=== PATIENT | female | born 1950 | race Caucasian/White ===

== ENCOUNTER 2022-04-18 12:50 | Emergency (ER) | payer MEDICARE, BC, SELFPAY ==
[2022-04-18 13:00] VITALS: BP 107/67; PULSE 82; RESP 16; TEMP 36.6; O2SAT 95; BMI 27.8
--- NOTE | 2022-04-18 13:18 | CRLHL7_ITS ---
For Patients: As a result of the Cures Act, medical imaging exams and procedure reports are released immediately into your electronic medical record. You may view this report before your referring provider. If you have questions, please contact your health care provider. Indication: Pain. Technique: Right hand, 3 views. Comparison: None. Findings/Impression: Bones: Alignment is normal. No displaced fractures or bone lesions. No sign of acute injury. Joint spaces: Unremarkable. Soft tissues: Unremarkable. Dictated by Fede Chapin MD @ 04/18/2022 1:38:03 PM (Electronically Signed)
--- NOTE | 2022-04-18 13:24 | ED.GENADULT ---
HPI - General Adult General Date Seen: 04/18/22 Chief complaint: Extremity Pain/Injury, Upper Stated complaint: R ring finger swollen Time Seen by Provider: 04/18/22 12:53 Source: patient Mode of arrival: ambulatory Limitations: no limitations History of Present Illness HPI narrative: Patient is a 71-year-old female who presents here with a painful right index finger, she has had this now for approximately 4 weeks, it has gradually get worse, she notices primarily on the flexor part of her hand, it is not red, it is not hot, but she has a hard time extending her finger. She has a little bit of 1 on the also on the left hand to. She notes that she saw her physician 2 weeks ago with colder to take Tylenol and come back and be seen if it gets worse, she called the clinic today and they told her to come to the emergency room. She denies any numbness tingling weakness, she is not poked her finger, she has had no fevers chills, she has no personal history of any significant arthritic type component. Is not an overuse injury. No history of any recent IV or surgical procedures. She is on no immunosuppressive medication, no chronic steroid use. Related Data Home Medications Medication Instructions Recorded Confirmed alendronate 70 mg tablet mg PO 04/18/22 aspirin 81 mg tablet,delayed 81 mg PO DAILY 04/18/22 04/18/22 release (Adult Low Dose Aspirin) citalopram 20 mg tablet mg 04/18/22 famotidine 40 mg tablet mg 04/18/22 levothyroxine 75 mcg tablet mcg 04/18/22 metoprolol tartrate 25 mg tablet mg 04/18/22 montelukast 10 mg tablet mg 04/18/22 pantoprazole 20 mg tablet,delayed mg PO 04/18/22 release pediatric [id number]-[id number] .ROUTE 04/18/22 potassium chloride 20 mEq meq PO 04/18/22 tablet,extended release simvastatin 80 mg tablet mg 04/18/22 triamterene 75 tab 04/18/22 mg-hydrochlorothiazide 50 mg tablet Allergies Allergy/AdvReac Type Severity Reaction Status Date / Time No Known Drug Allergies Allergy Verified 04/18/22 12:56 Review of Systems Status of ROS: Reports: 6 or more systems reviewed and unremarkable except as noted in History and below PFSH PFSH Social History Smoking Status: Never smoker Do you use any of these nicotine containing products: None Second hand tobacco smoke exposure: Yes How often do you have a drink containing alcohol: never AUDIT-C Alcohol total score: 0 Non-prescribed substance use: denies use service: No Exam Narrative: Exam Narrative: On examination she is somewhat sore, on whom of evaluating her right dominant hand, over just proximal to the MCP on the 4th finger, cannot feel a pop per him a mass there, but whenever she moves her hand through full range of motion she is sore and there is some swelling noted of the finger, there is no warmth to this, there is no redness, cap refills normal sensations normal, Const: Vital Signs, click to edit/add: Vital Signs - 24 hr 04/18/22 13:00 04/18/22 14:30 Temperature 97.8 F Pulse Rate [Right Pulse Oximeter] 82 55 L Respiratory Rate 16 16 Blood Pressure [Le ft Upper Arm] 107/67 106/79 Pulse Oximetry 95 96 Oxygen Delivery Me thod Room Air Course Course Hospital Course: X-rays negative of the hand, her white blood cell count CRP are very reassuring, I think this is non infectious tenosynovitis that she has, I think splinting would be indicated here, her sugar right 4th finger splinted in slight flexion at the MCP, she will wear this for the next 2-4 weeks, follow-up with primary care in 2 weeks, regular ibuprofen would be very helpful 600 mg p.o. t.i.d. is suggested with food, this should calmness down, this does not give relief, then consideration of evaluation by Hand surgery. Worsening signs and symptoms are discussed in detail she will come back and be seen if these occur, Vital Signs Vital signs: Initial Vital Signs Temperature 97.8 F 04/18/22 13:00 Temperature Source Temporal Artery Scan 04/18/22 13:00 Pulse Rate 82 04/18/22 13:00 Respiratory Rate 16 04/18/22 13:00 Blood Pressure 107/67 04/18/22 13:00 Blood Pressure Mean 80 04/18/22 13:00 Pulse Oximetry 95 04/18/22 13:00 Vital Signs Temperature 97.8 F 04/18/22 13:00 Pulse Rate 82 04/18/22 13:00 Respiratory Rate 16 04/18/22 13:00 Blood Pressure 107/67 04/18/22 13:00 Pulse Oximetry 95 04/18/22 13:00 Temperature 97.8 F 04/18/22 13:00 Pulse Rate 55 L 04/18/22 14:30 Respiratory Rate 16 04/18/22 14:30 Blood Pressure 106/79 04/18/22 14:30 Pulse Oximetry 96 04/18/22 14:30 Oxygen Delivery Method 04/18/22 14:30 Medical Decision Making MDM Narrative Medical decision making narrative: Differential diagnosis here includes infectious tenosynovitis, not infectious tenosynovitis, arthritis either osteo or inflammatory arthritis, calcific tendinitis, Lab Data Lab results reviewed: Yes I reviewed the patient's lab results Labs: Lab Results 04/18/22 04/18/22 Range/Units 13:40 13:40 WBC 9.02 (4.50-11.00) K/uL C-Reactive Protein 1.0 (0.5-1.0) mg/dL Imaging Data hand x-ray: Attestation: I have reviewed the pertinent imaging results. My impression: No acute findings Radiologist's impression: Patient: JAISON CHASE Facility:?[facility] Patient ID:?[id number] Site Patient ID:?[id number]. Site :?[id number] Study:?XRay Extremity Right HAND 3V-04/18/2022 1:34:58 PM Ordering Physician:Octavia Gonzalez Final Report: Indication: Pain. Technique: Right hand, 3 views. Comparison: None. Findings/Impression: Bones: Alignment is normal. No displaced fractures or bone lesions. No sign of acute injury. Joint spaces: Unremarkable. Soft tissues: Unremarkable. Dictated by Fede Chapin MD @ 04/18/2022 1:38:03 PM (Electronic Signature) Discharge Plan Discharge Clinical Impression: Flexor tenosynovitis of finger Patient Disposition: Home, Self-Care Condition: Stable Instructions: Tenosynovitis (ED) Additional Instructions: Home rest please use the splint during all waking hours, and also at night time when he sleep, this is to give your finger rest, I do not think this is infection as is gone on too long, a regular dose of ibuprofen 600 mg p.o. t.i.d. with food is also suggested for at least 2 weeks, follow-up with regular provider within the next couple weeks of fails to give improvement then I would consideration of a seeing a hand specialist. Prescriptions: No Action famotidine 40 mg tablet Label Comments: TAKE 1 TABLET BY MOUTH ONCE DAILY alendronate 70 mg tablet PO simvastatin 80 mg tablet Label Comments: TAKE 1/2 (ONE-HALF) TABLET BY MOUTH AT BEDTIME pantoprazole 20 mg tablet,delayed release (DR/EC) PO Label Comments: TAKE 1 TABLET BY MOUTH EVERY OTHER DAY levothyroxine 75 mcg tablet Label Comments: TAKE 1 TABLET BY MOUTH BEFORE BREAKFAST citalopram 20 mg tablet Label Comments: TAKE 1 TABLET BY MOUTH IN THE MORNING montelukast 10 mg tablet triamterene-hydrochlorothiazid 75-50 mg tablet Label Comments: TAKE 1 TABLET BY MOUTH ONCE DAILY IN THE MORNING metoprolol tartrate 25 mg tablet Label Comments: TAKE 1 TABLET BY MOUTH ONCE DAILY potassium chloride 20 mEq tablet extended release PO Label Comments: TAKE 1 TABLET BY MOUTH TWICE DAILY WITH MEALS pediatric tcqswdon-sowj-pxe .ROUTE aspirin [Adult Low Dose Aspirin] 81 mg tablet,delayed release (DR/EC) 81 mg PO DAILY Follow Up/Referrals: Asya Acosta MD [Primary Care Provider] - Stand Alone Forms: [employer] Info Instructions
[2022-04-18 13:53] LABS: White Blood Count* 9.02 K/uL (4.50-11.00)
[2022-04-18 14:30] VITALS: BP 106/79; PULSE 55; RESP 16; O2SAT 96
== END 2022-04-18 15:08 | disposition home or self-care (01) ==
PROVIDERS: Emergency Provider Family Medicine; PCP Family Medicine
DX: M65.841 Other synovitis and tenosynovitis, right hand (principal)
CPT/HCPCS: 29130; 36415; 73130; 85048; 86140; 99283

== ENCOUNTER 2022-07-30 11:01 | Emergency (ER) | payer MEDICARE, BC, SELFPAY ==
[2022-07-30] VITALS (12 sets, daily range): BP systolic 116–134; BP diastolic 72–88; PULSE 50–55; RESP 18; TEMP 36.5; O2SAT 93–99; BMI 26.6
[2022-07-30] MEDS: 0.9 % SODIUM CHLORIDE 500 ML 500 ML IV (11:30)
[2022-07-30 11:40] LABS: Basophils Absolute Auto 0.03 K/uL (0.00-0.30); Basophils Percent Auto 0.3 % (0.0-3.0); Eosinophils Absolute Auto 0.03 K/uL (0.00-0.50); Eosinophils Percent Auto 0.3 % (0.0-7.0); Hematocrit 38.7 % (33.0-51.0); Hemoglobin* 12.4 gm/dL (12.0-16.0); Immature Granulocytes Abs Auto 0.01 K/uL (0.00-0.30); Immature Granulocytes Pct Auto 0.1 %; Lymphocytes Percent Auto 14.4 % (20-44); Mean Corpuscular HGB Conc 32 gm/dL (32-36); Mean Corpuscular Hemoglobin 28 pg (26-34); Mean Corpuscular Volume 87 fL (80-100); Monocytes Percent Auto 4.7 % (0.0-11.0); Neutrophils Percent Auto 80.2 % (42.0-72.0); Platelet Count* 288 K/uL (140-440); RDW Coefficient of Variation % 14.4 % (11.5-15.5); Red Blood Count 4.45 m/uL (4.00-5.20); White Blood Count* 10.84 K/uL (4.50-11.00)
[2022-07-30 11:42] LABS: Slide Review Reflex No
--- NOTE | 2022-07-30 11:42 | ED_ITS ---
HPI - General Adult General Date Seen: 07/30/22 Chief complaint: Syncope/Fainted Stated complaint: Syncope Time Seen by Provider: 07/30/22 11:03 Source: patient Mode of arrival: ambulatory Limitations: no limitations History of Present Illness HPI narrative: Patient is a 71-year-old woman who had a fainting spell at [facility] today. She says she was standing, feeling plates for communion when she started to feel tingly and lightheaded, she said that she had a fainting spell 2 weeks ago and she knew that she was going to pass out. She sat down, was reportedly unresponsive for some period of time, I am unsure how long at this time. Her friend who is with her is going to try and find that information out. She says that she woke up, she knew where she was, no reported seizure activity. No history of seizures. She denies antecedent chest pain or palpitations, she does get a little bit of a headache when she has these spells when she wakes up. She had diarrhea for couple of weeks prior to the last fainting spell but the diarrhea has stopped. She was seen at [facility] in the ER after that fainting spell and says that she had a heart workup and labs, was told that her blood pr essure was a little low and that her potassium was little bit low. She takes hydrochlorothiazide and currently takes metoprolol as well. She tells me that her metoprolol was decreased recently as someone thought that she might not need to be on it anymore. However she still takes it once daily. She did not have a Holter monitor done. No injuries from today's syncopal episode. Related Data Home Medications Medication Instructions Recorded Confirmed alendronate 70 mg tablet mg PO 04/18/22 aspirin 81 mg tablet,delayed 81 mg PO DAILY 04/18/22 04/18/22 release (Adult Low Dose Aspirin) citalopram 20 mg tablet mg 04/18/22 famotidine 40 mg tablet mg 04/18/22 levothyroxine 75 mcg tablet mcg 04/18/22 metoprolol tartrate 25 mg tablet mg 04/18/22 montelukast 10 mg tablet mg 04/18/22 pantoprazole 20 mg tablet,delayed mg PO 04/18/22 release pediatric fldbmbsu-rnov-qzq .ROUTE 04/18/22 potassium chloride 20 mEq meq PO 04/18/22 tablet,extended release simvastatin 80 mg tablet mg 04/18/22 triamterene 75 tab 04/18/22 mg-hydrochlorothiazide 50 mg tablet Allergies Allergy/AdvReac Type Severity Reaction Status Date / Time No Known Drug Allergies Allergy Verified 04/18/22 12:56 Review of Systems Status of ROS: Reports: 10 or more systems reviewed and unremarkable except as noted in History and [facility] Smoking Status: Never smoker Do you use any of these nicotine containing products: None Second hand tobacco smoke exposure: Yes How often do you have a drink containing alcohol: never AUDIT-C Alcohol total score: 0 Non-prescribed substance use: denies use service: No Exam Narrative: Exam Narrative: Vital signs as noted above. In general, an alert, well-appearing patient. Head: Normocephalic, atraumatic. Eyes: Pupils are equal reactive. Extraocular movements are full. Conjunctivae are normal. ENT: Mucous membranes are moist. Throat is normal. Neck: Supple without lymphadenopathy. Heart: Bradycardic and regular, no murmur. Lungs: Clear bilaterally. No increased work of breathing, crackles or wheezes. Abdomen: Soft and nontender. No organomegaly. Extremities: Well perfused. No edema. No calf tenderness. Pulses intact. Neurologic: Patient is alert and oriented to person and place. Speech is fluent. Face is symmetric. Moves all extremities equally. Affect: Normal. Skin: Warm and dry. Well perfused. Const: Vital Signs, click to edit/add: Vital Signs - 24 hr 07/30/22 11:04 07/30/22 11:18 07/30/22 11:19 Temperature 97.7 F Pulse Rate 55 L 54 L Pulse Rate [Pulse Oximeter] 54 L Respiratory Rate 18 Blood Pressure 134/80 Blood Pressure [Ri ght Upper Arm] 125/81 Pulse Oximetry 96 93 94 Oxygen Delivery Me thod Room Air 07/30/22 11:31 07/30/22 11:33 07/30/22 12:00 Temperature Pulse Rate 52 L 53 L Pulse Rate [Pulse Oximeter] Respiratory Rate Blood Pressure 120/79 Blood Pressure [Ri ght Upper Arm] Pulse Oximetry 95 96 Oxygen Delivery Me thod 07/30/22 12:01 07/30/22 12:02 07/30/22 12:30 Temperature Pulse Rate 55 L 52 L 51 L Pulse Rate [Pulse Oximeter] Respiratory Rate Blood Pressure 125/83 Blood Pressure [Ri t Upper Arm] Pulse Oximetry 97 95 96 Oxygen Delivery Me thod 07/30/22 12:32 07/30/22 13:00 07/30/22 13:01 Temperature Pulse Rate 50 L 51 L 54 L Pulse Rate [Pulse Oximeter] Respiratory Rate Blood Pressure 120/72 116/88 Blood Pressure [Ri ght Upper Arm] Pulse Oximetry 96 99 96 Oxygen Delivery Me thod Documenting provider has reviewed patient's vital signs: yes Course Course Hospital Course: Following initial evaluation, patient had an EKG which showed a sinus bradycardia with a rate of 55. No acute ST segment changes. She tells me that her heart rate runs between the mid 40s to mid 50s, and I do question whether metoprolol is the right medication for her. She also tells me that her blood pressure tends to run low, so I suggested that we hold metoprolol completely and see whether not she needs 2 blood pressure medicines in the 1st place. We will go ahead and recheck labs, keep her on the monitor. I will have her go home with a Holter assuming labs all look good, with close outpatient follow-up. Sinus pauses or severe bradycardia are considerations, symptoms could also be vagal, orthostatic, will rule out dehydration, anemia or other metabolic derangement. Labs are reassuring, CBC shows a normal white blood cell count, hemoglobin of 12.4. Metabolic panel is normal aside from a mildly elevated BUN of 34. Blood sugar is 206, nonfasting. I do not see a history of diabetes, this is something that can be recheck with primary care. I do not think it is directly related to her syncopal episode. In fact, clarification from the friend who is here says that talking with the person that she was with at [facility], she did feel lightheaded like she was going to faint, she went to sit down, there was apparently no actual syncope today. For about an hour she felt apparently lightheaded and dizzy, then ate some cake and seemed to feel better. The friend who is with her does say that she forgets to eat sometimes, so perhaps that contributed to some degree. I did sit her up for a Holter monitor will have her follow up with Dr. Acosta after that. I have asked her to discontinue the metoprolol for now and to check her blood pressures at home once a day until she sees Dr. Acosta so we can see how she does off of the metoprolol. It sounds as if Dr. Acosta had tried actually to discontinue the metoprolol completely, but patient restarted it because she said she was getting headaches. Therefore, they agreed on at half dose rather than a full dose. Troponin is negative here today, EKG is unremarkable with the exception of bradycardia, I do not think this represents an acute coronary syndrome. LFTs are normal, CRP mildly elevated at 1.7, nonspecific. For now, she is feeling well, I think it is reasonable to let her go home with follow-up as outlined above. Return at any time for recurrent spells or fainting, chest pain, vomiting, fevers or other new symptoms. Vital Signs Vital signs: Initial Vital Signs Temperature 97.7 F 07/30/22 11:04 Temperature Source Temporal Artery Scan 07/30/22 11:04 Pulse Rate 54 L 07/30/22 11:04 Respiratory Rate 18 07/30/22 11:04 Blood Pressure 125/81 07/30/22 11:04 Blood Pressure Mean 95 07/30/22 11:04 Pulse Oximetry 96 07/30/22 11:04 Oxygen Delivery Method Room Air 07/30/22 11:04 Vital Signs Temperature 97.7 F 07/30/22 11:04 Pulse Rate 54 L 07/30/22 11:04 Respiratory Rate 18 07/30/22 11:04 Blood Pressure 125/81 07/30/22 11:04 Pulse Oximetry 96 07/30/22 11:04 Oxygen Delivery Method Room Air 07/30/22 11:04 Temperature 97.7 F 07/30/22 11:04 Pulse Rate 54 L 07/30/22 13:01 Respiratory Rate 18 07/30/22 11:04 Blood Pressure 116/88 07/30/22 13:01 Pulse Oximetry 96 07/30/22 13:01 Oxygen Delivery Method Room Air 07/30/22 11:04 Medical Decision Making Lab Data Labs: Lab Results 07/30/22 Range/Units 11:30 WBC 10.84 (4.50-11.00) K/uL RBC 4.45 (4.00-5.20) m/uL Hgb 12.4 (12.0-16.0) gm/dL Hct 38.7 (33.0-51.0) % MCV 87 (80-100) fL MCH 28 (26-34) pg MCHC 32 (32-36) gm/dL RDW Coeff of Susan 14.4 (11.5-15.5) % Plt Count 288 (140-440) K/uL Neut % (Auto) 80.2 H (42.0-72.0) % Lymph % (Auto) 14.4 L (20-44) % [place] % (Auto) 4.7 (0.0-11.0) % Eos % (Auto) 0.3 (0.0-7.0) % Baso % (Auto) 0.3 (0.0-3.0) % Neut # (Auto) 8.70 H (1.7-7.0) K/uL Lymph # (Auto) 1.60 (0.90-2.90) K/uL [place] # (Auto) 0.50 (0.00-0.90) K/UL Eos # (Auto) 0.03 (0.00-0.50) K/uL Baso # (Auto) 0.03 (0.00-0.30) K/uL Sodium 139 (135-149) mmol/L Potassium 3.7 (3.6-5.1) mmol/L Chloride 100 (96-114) mmol/L Carbon Dioxide 28 (20-32) mmol/L BUN 34 H (7-30) mg/dL Creatinine 0.9 (0.5-1.5) mg/dL Estimated Creat Clear 46.43 Estimated GFR 68 ml/min Glucose 206 H (60-115) mg/dL Calcium 10.1 (8.4-10.6) mg/dL Total Bilirubin 1.2 (0.1-1.5) mg/dL Direct Bilirubin 0.4 (0.0-0.5) mg/dL AST 22 (12-35) U/L ALT 17 (4-35) U/L Alkaline Phosphatase 80 (40-150) U/L C-Reactive Protein 1.7 H (0.5-1.0) mg/dL Total Protein 7.8 (6.0-8.3) g/dL Albumin 4.4 (3.3-5.0) g/dL POC Troponin I 0.00 L (0.01-0.04) ng/ml Discharge Plan Discharge Clinical Impression: Bradycardia, Syncope Patient Disposition: Home, Self-Care Condition: Improved Instructions: Syncope (DC), Bradycardia (ED) Additional Instructions: All of your lab work today is reassuring. Your potassium is normal today. Your heart lab is normal. Your heart rate is a little bit slow here, which may or may not have anything to do with your fainting spells. However, for now I would recommend that you discontinue her metoprolol completely for a week or so and see how your blood pressure does. You can discuss this further with your primary doctor as to whether you need an additional blood pressure medication or not, but the metoprolol may be contributing to a slow heart rate and could potentially be involved in your fainting spells. I would recommend follow-up next week with your primary doctor, return to the emergency department for acute worsening or new symptoms. Prescriptions: No Action famotidine 40 mg tablet Patient Comments: TAKE 1 TABLET BY MOUTH ONCE DAILY alendronate 70 mg tablet PO simvastatin 80 mg tablet Patient Comments: TAKE 1/2 (ONE-HALF) TABLET BY MOUTH AT BEDTIME pantoprazole 20 mg tablet,delayed release (DR/EC) PO Patient Comments: TAKE 1 TABLET BY MOUTH EVERY OTHER DAY levothyroxine 75 mcg tablet Patient Comments: TAKE 1 TABLET BY MOUTH BEFORE BREAKFAST citalopram 20 mg tablet Patient Comments: TAKE 1 TABLET BY MOUTH IN THE MORNING montelukast 10 mg tablet triamterene-hydrochlorothiazid 75-50 mg tablet Patient Comments: TAKE 1 TABLET BY MOUTH ONCE DAILY IN THE MORNING metoprolol tartrate 25 mg tablet Patient Comments: TAKE 1 TABLET BY MOUTH ONCE DAILY potassium chloride 20 mEq tablet extended release PO Patient Comments: TAKE 1 TABLET BY MOUTH TWICE DAILY WITH MEALS pediatric vesaceth-zxzc-gln .ROUTE aspirin [Adult Low Dose Aspirin] 81 mg tablet,delayed release (DR/EC) 81 mg PO DAILY Follow Up/Referrals: Aysa Acosta MD [Primary Care Provider] - Stand Alone Forms: [employer] Info Instructions
[2022-07-30 11:53] LABS: Albumin* 4.4 g/dL (3.3-5.0); Chloride* 100 mmol/L (96-114); Sodium* 139 mmol/L (135-149)
[2022-07-30 11:54] LABS: Potassium* 3.7 mmol/L (3.6-5.1)
[2022-07-30 11:56] LABS: Creatinine* 0.9 mg/dL (0.5-1.5); Est. Creatinine Clearance* 46.43; Estimated Glomerular Filt Rate 68 ml/min
[2022-07-30 11:57] LABS: Alanine Aminotransferase* 17 U/L (4-35); Alkaline Phosphatase* 80 U/L (40-150); Aspartate Amino Transferase* 22 U/L (12-35); Bilirubin Direct* 0.4 mg/dL (0.0-0.5); Bilirubin Total* 1.2 mg/dL (0.1-1.5); Blood Urea Nitrogen* 34 mg/dL (7-30); Calcium* 10.1 mg/dL (8.4-10.6); Carbon Dioxide* 28 mmol/L (20-32); Glucose* 206 mg/dL (60-115); Total Protein* 7.8 g/dL (6.0-8.3)
[2022-07-30 12:00] LABS: C Reactive Protein* 1.7 mg/dL (0.5-1.0)
== END 2022-07-30 13:43 | disposition home or self-care (01) ==
PROVIDERS: Emergency Provider Emergency Medicine; PCP Family Medicine
DX: R55 Syncope and collapse (principal); R00.1 Bradycardia, unspecified
CPT/HCPCS: 36415; 80048; 80076; 84484; 85025; 86140; 93005; 93225; 93226; 94761; 99284; J7120

== ENCOUNTER 2024-08-21 13:22 | Outpatient (CLI) | payer MEDICARE, BC, SELFPAY ==
--- NOTE | 2024-08-21 13:30 | CRLHL7_ITS ---
For Patients: As a result of the Century Cures Act, medical imaging exams and procedure reports are released immediately into your electronic medical record. You may view this report before your referring provider. If you have questions, please contact your health care provider. DXA BONE MINERAL DENSITY STUDY Current height (in): 65. Weight (lb): 190. Menopause age: 52. Ethnicity: White. 1. Have you had a previous hip or vertebral fracture? Yes. 2. Have you had any fractures during your adult life which did not result from significant trauma (e.g., auto accident)? Yes. 3. Did either of your parents have a hip fracture? No. 4. Do you smoke? No. 5. Have you ever taken Glucocorticoids? Yes. 6. Do you have rheumatoid arthritis? No. 7. Do you have secondary osteoporosis? No. 8. Do you drink 3 or more alcoholic drinks per day? No. 9. Are you being treated for osteoporosis? No. 10. Have you ever taken any of the following medications: Actonel, Evista, Fosamax, Miacalcin, Reclast, Boniva, Forteo, HRT (i.e. estrogen/hormone therapy), Protelos, Prolia, Vitamin D, Calcium, other ??? please specify. ANSWER: Yes, Vitamin D, Fosamax and Calcium. 11. Do you have any of the following medical conditions: Anorexia or bulimia, asthma or emphysema, end stage renal disease, hyperparathyroidism, any seizure disorders, cancer, inflammatory bowel diseases, hysterectomy, other ??? please specify. ANSWER: Yes, Hysterectomy. 12. What was your maximum height (inches)? 65. 13. Do you perform weight bearing exercise regularly? Yes. 14. Do you regularly consume dairy products? Yes. 15. Do you drink caffeinated beverages? Yes. 16. At what age did your period start? 12. 17. Are you premenopausal? No. 18. How many full term pregnancies have you had? 4. 19. Have you ever missed your period for more than 6 months in a row (not including or menopause)? No. TECHNIQUE: Bone mineral density study was performed using the [employer]. FINDINGS: The results of the study expressed as bone mineral density (BMD) are as follows: Lumbar spine L1, L4: BMD: 1.059 g/cm2. T-score: 0.2. Z-score: 2.5. Neck Left: BMD: 0.786 g/cm2. T-score: -0.6. Z-score: 1.4. Right: BMD: 0.798 g/cm2. T-score: -0.5. Z-score: 1.6. Total Left: BMD: 0.888 g/cm2. T-score: -0.4. Z-score: 1.3. Right: BMD: 0.893 g/cm2. T-score: -0.4. Z-score: 1.3. Radius Left 33%: BMD: 0.647 g/cm2. T-score: -0.8. Z-score: 1.7. IMPRESSION: Normal bone density. Edgard Ross M.D. Diagnostic Radiologist [email or web address] AIDEE/dayne DW/Dictated by: Edgard Ross MD @ 08/22/2024 10:47:00 AM (Electronically Signed)
== END 2024-08-21 13:23 | disposition home or self-care (01) ==
LOC: RAD 13:23
PROVIDERS: PCP Student in an Organized Health Care Education/Training Program; Visit Provider Orthopaedic Surgery Orthopaedic Surgery of the Spine
DX: M48.062 Spinal stenosis, lumbar region with neurogenic claudication (principal); M54.50 Low back pain, unspecified; M79.609 Pain in unspecified limb
CPT/HCPCS: 77080

== ENCOUNTER 2024-08-29 13:30 | Outpatient (CLI) | payer MEDICARE, BC, SELFPAY ==
--- NOTE | 2024-08-29 14:00 | CRLHL7_ITS ---
For Patients: As a result of the Century Cures Act, medical imaging exams and procedure reports are released immediately into your electronic medical record. You may view this report before your referring provider. If you have questions, please contact your health care provider. INDICATION: Assess bone density. TECHNIQUE: CT of the lumbar spine without contrast. Coronal and sagittal reformats are included. COMPARISON: Lumbar spine radiographs from 08/18/2024. FINDINGS: Focal osseous lesions: None. The bones are diffusely demineralized. Fractures and acute findings: None. Hardware and surgical findings: Postsurgical changes of L2 through L4 dorsolateral instrumented/bone graft fusion. No evidence of hardware loosening. Ghost tracts L5 from explanted hardware. Laminectomy changes at L2-3, L3-4 and L4-5. Spinal alignment: Straightening of the typical lumbar lordosis. Moderate levoconvex lumbar curvature. Rightward listhesis of L1 on L2. Signficant degenerative changes: Advanced disc height loss and endplate remodeling at L2-3 on the right, L3-4 on the right, and at L5-S1. Osseous fusion at the L5-S1 interspace. L5-S1 left-sided advanced facet arthrosis. At least moderate left neural foraminal stenosis. Bilateral SI joint arthrosis. Soft tissues: Within normal limits. IMPRESSION: 1. No acute fracture or traumatic malalignment of the lumbar spine. 2. Bones are diffusely demineralized. 3. Postop changes of L2 through L4 spinal fusion without evidence of hardware loosening or other complication. Mature integration of bone graft at the operative levels. 4. Multilevel laminectomy changes at L2 through L5. 5. Multilevel spondylosis, with L5-S1 at least moderate left neural foraminal stenosis. Please note that all CT scans at this facility use dose modulation, iterative reconstruction, and/or weight-based dosing when appropriate to reduce radiation dose to as low as reasonably achievable. Dictated by Daniel Paul MD @ 09/01/2024 10:38:31 AM (Electronically Signed)
== END 2024-08-29 13:31 | disposition home or self-care (01) ==
LOC: CT 13:31
PROVIDERS: PCP Student in an Organized Health Care Education/Training Program; Visit Provider Orthopaedic Surgery Orthopaedic Surgery of the Spine
DX: M48.062 Spinal stenosis, lumbar region with neurogenic claudication (principal); M47.897 Other spondylosis, lumbosacral region; M48.07 Spinal stenosis, lumbosacral region; Z78.0 Asymptomatic menopausal state; M54.16 Radiculopathy, lumbar region; M51.369 Other intervertebral disc degeneration, lumbar region without mention of lumbar back pain or lower extremity pain
CPT/HCPCS: 64483; 72131; J1100; Q9966

== ENCOUNTER 2024-08-29 13:35 | Outpatient (CLI) | payer MEDICARE, BC, SELFPAY ==
--- OUTSIDE RECORDS SUMMARY | 2024-08-29 14:28 | XMS_ITS | Clinical Summary ---
Author Organization [facility] Address [address] [place] [address] Care Team Providers Care Services Clerk Name Role Phone Nacho Lozoya MD Primary Care P rovider Allergies No known active allergies Medications aspirin 81 mg tablet Take 1 tablet by mouth once daily with a meal. 0 1 Active omega-3 fatty acids-vitamin E (FISH OIL) 1,000 mg Cap Take by mouth. 0 1 Active multivitamin (MVI) tablet Take 1 tablet by mouth once daily. 0 1 Active calcium carbonate-vitami n D3, 600 mg-400 unit, (CALCIUM 600 + D) tablet Take 1 tablet by mouth 2 times daily with meals. 180 tablet 0 3 Active sennosides (SENNA) 8.6 mg tabletIndication s:Constipation Take 1 tablet by mouth 2 times daily. 180 tablet 1 4 Active ferrous sulfate, 65 mg elemental, tablet Take 325 mg by mouth once daily. 1 Active Graduated Compression StockingsIndicat ions:Asymptomati c varicose veins of left lower extremity For personal use. Length: thigh Strength: 20-30 mmHg 1 Packet 3 Active amLODIPine (NORVASC) 5 mg tabletIndication s:Hypertension, unspecified type Take 1 Tablet (5 mg) by mouth once daily. 90 Tablet 3 4 Active levothyroxine (SYNTHROID) 75 mcg tabletIndication s:Hypothyroidism , unspecified type Take 1 Tablet (75 mcg) by mouth before breakfast. 90 Tablet 3 4 Active fluticasone (50 mcg per actuation) nasal solution (FLONASE)Indicat ions:Chronic rhinitis Inhale 2 Sprays in both nostrils once daily. 16 g 11 4 Active escitalopram oxalate (LEXAPRO) 10 mg tabletIndication s:Depression, unspecified depression type Take 1 Tablet (10 mg) by mouth once daily in the morning. 90 Tablet 3 4 Active famotidine (PEPCID) 40 mg tabletIndication s:Laryngopharyng eal reflux disease Take 1 Tablet (40 mg) by mouth once daily. 90 Tablet 3 4 Active montelukast (SINGULAIR) 10 mg tabletIndication s:Nasal congestion,Nasal obstruction Take 1 Tablet (10 mg) by mouth once daily. 90 Tablet 3 4 Active erythromycin ophthalmic ointment 0.5%Indications: Hordeolum externum of left upper eyelid Apply 1 Strip to left eye four times daily. 3.5 g 5 Active hydroCHLOROthiaz valencia 25 mg tabletIndication s:Hypertension Take 1 Tablet (25 mg) by mouth once daily. 90 Tablet 2 5 Active losartan (COZAAR) 100 mg tabletIndication s:Hypertension Take 1 Tablet (100 mg) by mouth once daily. 90 Tablet 2 5 Active rosuvastatin 10 mg tabletIndication s:Hypertension, unspecified type TAKE 1 TABLET BY MOUTH AT BEDTIME 90 Tablet 1 5 Active LORazepam 0.5 mg tabIndications:C laustrophobia Take 1 Tablet (0.5 mg) by mouth one time for 1 dose. Take 15- 30 min prior to your appt, you will need to have a commercial collections driver 1 Tablet 5 Active metFORMIN 500 mg Extended-Release tabletIndication s:Type 2 diabetes mellitus without complication, without long-term current use of insulin (HC) Take 1 Tablet (500 mg) by mouth once daily. 90 Tablet 1 5 Active Active Problems Problem Noted Date Diagnosed Date History of back surgery 08/07/2024 Overview (08/07/2024): Past back surgeries by Edgard Cole MD at [facility] in [place] 2007 :L4-5 decompressive laminectomy and fusion using pedicular screws, rods, and bone morphogenic protein with autograft. 2020: L2-L4 laminectomy and medial facetectomy with decompression bilaterally as well as L2-L4 posterior lateral fusion Greater trochanteric pain sy ndrome of both lower extremities 05/21/2024 Driving safety issue 11/17/2022 Cognitive decline 11/17/2022 Impaired insight 11/17/2022 Major neurocognitive disorde r, due to vascular disease, with behavioral disturbance, mild 11/17/2022 Trigger middle finger of left hand 10/23/2022 Carpal tunnel syndrome of right wrist 07/11/2022 Carpal tunnel syndrome of left wrist 07/11/2022 Trigger index finger of left hand 07/11/2022 Trigger middle finger of right hand 07/11/2022 Family history of fibromuscular dysplasia 2019 Varicose veins of legs 02/06/2017 Overview (02/06/2017): Many years Adenomatous colon polyp 01/23/2017 Overview (03/18/2020): Colonoscopy 01/2017 3 polyps repeat in 3 years Colonoscopy 03/2020 polyp, repeat in 5 years Chronic bilateral low back pain without sciatica 11/29/2016 Overview (01/02/2017): ~ December 2016: L5-S1 Interlaminar epidural steroid injection by Dr. Smith: 1 day of great benefit, then pain back to baseline by day 3. Gabapentin (neurontin) had side effects of insomnia. . Hypothyroidism 06/18/2015 Gastric ulcer 11/24/2013 Overview (11/24/2013): EGD 11/2013 superficial ulcer, neg H pylori Iron deficiency anemia 11/17/2013 Family history of colonic polyps 11/17/2013 Benign neoplasm of spinal cord 10/13/2013 Overview (08/07/2024): Needs yearly MRI to assess growth. AI Summary: As of 05/29/24: The patient has a history of spinal cord schwannoma, first noted on 10/13/2013, with imaging studies including MRIs of the spine performed in 12/27/2015 and 12/22/2014. Lorazepam was prescribed on 12/27/2015 for the schwannoma. The patient also has a history of hypertension, osteoporosis, iron deficiency anemia, hypothyroidism, type II diabetes mellitus, and major neurocognitive disorder. 05/21/24: Glu 207 mg/dL On meds: escitalopram Recent encounter dx: 06/22/23: Appointment - [facility] 04/07/22: Appointment - [facility] 07/08/21: Appointment - [facility] 01/03/16: Appointment - [facility] 12/27/15: Appointment - [facility] Recent notes: 05/21/24: Progress Notes - Office visit by Nacho Lozoya MD ... [+] ? Schwannoma of spinal cord (HC) 02/15/24: Progress Notes - Medicare Wellness Visit by Asya Acosta MD ... [+] ? Schwannoma of spinal cord (HC) D33.4 11/26/23: ED Provider Note by Amparo Garcia MD ... [+] Schwannoma of spinal cord (HC) 09/12/23: Progress Notes by Jon Frank MD ... [+] ? Schwannoma of spinal cord (HC) 10/13/2013 06/22/23: Progress Notes by Asya Acosta MD ... [+] Schwannoma of spinal cord (HC) D33.4 Osteoporosis, unspecified 12/06/2010 Type 2 diabetes mellitus 01/30/2006 Overview (08/07/2024): DIAB BENITA WO COMPL, TYPE II OR UNSPEC TYPE, NOT UNCNTRLD AI Summary: As of 05/21/24: The patient has a history of type 2 diabetes mellitus, with stage 3 chronic kidney disease mentioned in several notes from 07/08/2021 to 05/05/2024. Diabetes management has varied, with periods of well-controlled A1c levels and other periods where A1c levels were greater than 6.4. Simvastatin was prescribed multiple times between 02/04/2012 and 12/29/2016 for hyperlipidemia and diabetes mellitus, although the patient reported not being on any diabetes medication on 04/07/2024. 02/15/24: A1c 6.2 % OF TOTAL HGB 05/21/24: Cr 0.82 mg/dL Recent encounter dx: 05/05/24: Appointment - [facility] 04/07/24: Appointment - [facility] 02/15/24: Appointment - [facility] 12/13/23: Appointment - [facility] 07/20/23: Appointment - [facility] Recent notes: 05/05/24: Progress Notes - Office visit by Nacho Lozoya MD ... [+] Type 2 diabetes mellitus with stage 2 chronic kidney disease, without long-term current use of insulin (HC) 02/15/24: Progress Notes - Medicare Wellness Visit by Asya Acosta MD ... [+] ? Type 2 diabetes mellitus with stage 3 chronic kidney disease, without long-term current use of insulin, unspecified whether stage 3a or 3b CKD (HC) E11.22, N18.30 ... [+] Type 2 diabetes mellitus without complication, without long-term current use of insulin (HC) E11.9 HEMOGLOBIN A1C MONITORING (POCT) 11/26/23: ED Provider Note by Amparo Garcia MD ... [-] Samia Cruz is a 73 y.o. female with a medical history of type II diabetes mellitus, chronic kidney disease, hyperlipidemia, hypertension, anemia, and osteoporosis who presents to the Emergency Department by private car for evaluation of shortness of breath . ... [+] Type 2 diabetes mellitus with stage 3 chronic kidney disease, without long-term current use of insulin, unspecified whether stage 3a or 3b CKD (HC) 09/12/23: Progress Notes by Jon Frank MD ... [+] ? Type 2 diabetes mellitus with stage 3 chronic kidney disease, without long-term current use of insulin, unspecified whether stage 3a or 3b CKD (HC) 07/08/2021 06/22/23: Progress Notes by Asya Acosta MD ... [+] Type 2 diabetes mellitus with stage 3 chronic kidney disease, without long-term current use of insulin, unspecified whether stage 3a or 3b CKD (HC) E11.22 Hyperlipidemia LDL goal <100 Hypertension Resolved Problems Problem Noted Date Diagnosed Date Resolved Date Stage 3b chronic kidney disease 06/22/2023 05/05/2024 S/P right carpal tunnel release 12/18/2022 08/07/2024 S/P right 3d trigger finger release 12/18/2022 08/07/2024 Trigger ring finger of right hand 07/11/2022 08/07/2024 Stage 3 chronic kidney disease 01/13/2021 05/05/2024 Anticoagulation monitoring, INR range 2-3 03/06/2017 07/17/2017 Deep vein thrombosis (DVT) o f popliteal vein of left lower extremity, unspecified chronicity 03/06/2017 12/12/2021 Diabetes mellitus 05/05/2024 Encounters Date Type Department Care Team Description 08/27/2024 Telephone [facility] [address] [place] [address] Nacho Lozoya MD Results 08/21/2024 Orders Only [facility] Scanner 1 scan: (1-Ord) [facility], XR DEXA AXIAL SKELETON, 08/21/2024 08/19/2024 Transcribe Orders [facility] [address] [place] [address] Kevin Smith MD 08/18/2024 Telephone [facility] [address] [place] [address] Nacho Lozoya MD Questions (Referral ) 08/15/2024 2:54 PM CDT - 08/15/2024 11:59 PM CDT Hospital Encounter [facility] [address] [place] [address] Nacho Lozoya MD Chronic bilateral low back pain without sciatica; History of lumbar fusion; History of lumbar discectomy 08/15/2024 Travel 08/11/2024 Telephone [facility] [address] [place] [address] Nacho Lozoya MD Medication Management (Metformin) 08/08/2024 Telephone [facility] [address] [place] [address] Nacho Lozoya MD Results 08/07/2024 1:00 PM CDT Office Visit [facility] [address] [place] [address] Nacho Lozoya MD Follow Up (Back pain) 08/07/2024 Telephone [facility] [address] [place] [address] Nacho Lozoya MD med for MRI 08/07/2024 Telephone [facility] [address] [place] [address] Nacho Lozoya MD Screening 08/07/2024 Travel 08/05/2024 Telephone [facility] [address] [address] Lizzeth Domingo, PhD, LP Appointment Reminder 07/24/2024 10:31 AM CDT - 07/24/2024 11:59 PM CDT Hospital Encounter [address] [address] Nacho Lozoya MD Rein, Erik, PT 07/24/2024 Travel 07/17/2024 10:41 AM CDT - 07/17/2024 11:59 PM CDT Hospital Encounter [address] [address] Nacho Lozoya MD Vinar, Kaylin J, DATA MANAGEMENT 07/17/2024 Travel 07/03/2024 10:52 AM CDT - 07/03/2024 11:59 PM CDT Hospital Encounter [address] [address] Nacho Lozoya MD Vinar, Kaylin J, DATA MANAGEMENT 07/03/2024 Travel 06/26/2024 1:11 PM CDT - 06/26/2024 11:59 PM CDT Hospital Encounter [address] [address] Nacho Lozoya MD Rein, Erik, PT 06/26/2024 Travel 06/19/2024 10:54 AM CDT - 06/19/2024 11:59 PM CDT Hospital Encounter [address] [address] Nacho Lozoya MD Rein, Erik, PT 06/19/2024 Travel 06/12/2024 2:54 PM CDT - 06/12/2024 11:59 PM CDT Hospital Encounter [address] [address] Nacho Lozoya MD Rein, Erik, PT 06/12/2024 Travel 06/08/2024 [address]ill [address] [place] [address] [place] [address] Nacho Lozoya MD Refill Request (Rosuvastatin) 05/29/2024 10:09 AM CDT - 05/29/2024 11:59 PM CDT Hospital Encounter [address] [address] Nacho Lozoya MD Rein, Erik, PT Greater trochanteric pain syndrome of both lower extremities; Chronic bilateral low back pain without sciatica 05/29/2024 Travel from Last 3 Months Immunizations Immunization Administration Dates Next Due COVID-19 VACCINE SPIKEVAX (M ODERNA 50MCG/0.5ML) 12YO+ PFS 12/13/2023 COVID-19 vaccine (Moderna 100mcg/0.5mL) ALEJANDRINA ARNETT 06/16/2020,05/19/2020 COVID-19 vaccine (Pfizer-Bio NTech 30mcg/0.3mL) ALEJANDRINA ARNETT 01/13/2021 Influenza, High-dose Inactivated 12/27/2015 Influenza, IIV3 (Age 6-35 mos) 12/11/2008 Influenza, IIV3 (Age >=3 years) 01/07/2013,11/20,12/06/2010 Influenza, IIV4 12/22/2014,12/08/2013 Influenza, Inactivated AIIV4 (Age 65+ Years) Preserv Free 11/20/2022,12/12/2021,01/13/2021,2019 Influenza, Inactivated IIV3 (Age 65+ Years) Preserv Free 12/13/2023,01/02/2019,12/31/2017,2016 Pneumococcal Poly,23-Valent (Pneumovax) 12/29/2016 Pneumococcal conj 13-Valent (Prevnar 13) 12/27/2015 Tdap 12/22/2014 Zoster (Shingrix-RZV, recombinant) 05/01/2019, Family History Medical History Relation Name Comments Cancer Brother Diabetes Father Heart Disease Father Cancer-breast Mother Diabetes Mother GI Disease Mother colon polyps Hypertension Mother Pulmonary embolism Mother Coronary artery disease Sister 1 Heart Disease Sister 1 MD Pulmonary embolism Sister 2 Heart Disease Sister 3 fibromuscular dysplasia Pulmonary embolism Son Cancer-ovarian No Family History Relation Name Status Comments Brother Father Mother Sister 1 Sister 2 Alive Sister 3 Alive Son Social History Tobacco Use Types Packs/Day Years Used Date Smoking Tobacco: Never Smokeless Tobacco: Never Tobacco Cessation:Counseling Given: Yes Alcohol Use Standard Drinks/Week Comments No 0 (1 standard drink = 0.6 oz pur e alcohol) PHQ-2 Answer Date Recorded PHQ-2 TOTAL SCORE 0 02/15/2024 Social Connections Answer Date Recorded Do you often feel lonely or isolated from those around you? 0 12/13/2023 Financial Resource Strain Answer Date R ecorded Difficulty of Paying Living Expenses 3 12/13/2023 Difficulty of Paying Living Expenses Not on file 12/13/2023 Food Insecurity Answer Date Recorded Do you worry your food will run out before you are able to buy more? 1 12/13/2023 Transportation Needs Answer Date Record ed Does lack of transportation keep you from medica l appointments? 1 12/13/2023 Does lack of transportation keep you from work, meetings or getting things that you need? 1 12/13/2023 Housing Stability Answer Date Recorded What is your housing situation today? 1 12/13/2023 Interpersonal Safety Answer Date Record ed Are you being hit, kicked, p ushed or yelled at (see row info)? No 11/26/2023 Interpersonal Safety Abuse 12 - 18 Not on file 11/26/2023 Interpersonal Safety Ambulatory Vulnerability No t on file 11/26/2023 Utilities Answer Date Recorded Do you have trouble paying f or utilities (for example, heat, electricity, water, phone)? 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 Gender Identity Not on file Sexual Orientation Not on file Obstetrics History Para Term AB IAB SAB Ectopic Multiple Livin g Live Births 4 4 4 3 Date Outcome GA Total Labor Labor/2nd/3rd Weight Sex Type Anes PTL Belle A1 A5 Name Clin Term Term Term Term Last Filed Vital Signs Vital Sign Reading Time Taken Comments Blood Pressure 113/65 08/07/2024 12:59 PM CDT Pulse 51 08/07/2024 12:59 PM CDT Temperature 37.4 C (99.3 F) 04/25/2024 7:12 PM TROUBLE OPERATOR Respiratory Rate 20 04/25/2024 7:12 PM TROUBLE OPERATOR Oxygen Saturation 96% 08/07/2024 12:59 PM CDT Inhaled Oxygen Concentration - - Weight 89.4 kg (197 lb 3.2 oz) 08/07/2024 12:59 PM CDT Height 165.1 cm (5' 5) 05/05/2024 1:32 PM TROUBLE OPERATOR Body Mass Index 32.82 05/05/2024 1:32 PM TROUBLE OPERATOR Plan of Treatment Upcoming Encounters Date Type Department Care Team (Late st Contact Info) Description 08/29/2024 3:00 PM CDT Office Visit [facility] at [facility] [address] [place] [phone] Kevin Smith MD [facility] [place] [address] Arrived 09/25/2024 9:05 AM CDT Office Visit [facility] [place] [address] [facility] [place] [phone] Ruben Morales MD [address] [place] [address] Health Maintenance Due Date Last Done Comments COVID-19 vaccine series ( season) 2024 12/13/2023, 01/13/2021, 06/16/2020, Additional history exists Tetanus booster 12/22/2024 12/22/2014, 01/12/2011 Depression screening for age 12+ 02/14/2025 02/15/2024, 02/13/2024, 02/21/2023, Additional history exists Mammogram for age 45-75 02/14/2025 02/15/20, 02/21/2023, 02/20/2022, Additional history exists Medicare Wellness for age 65+ 02/15/2025 02/15/2024, 02/21/2023, 02/20/2022, Additional history exists Colonoscopy through age 75 03/16/202503/16, 03/16/2020, 03/16/2020, Additional history exists BMI (ht and wt on same day) for age 18+ 05/05/2025 05/05/2024, 02/15/2024, 12/13/2023, Additional history exists RSV vaccine for adults or (1 - 1-dose 75+ series) 2025 Lipids for age 45-75 02/14/2029 02/15/2024, 02/21/2023, 12/12/2021, Additional history exists Tdap Completed 12/22/2014 Pneumococcal series for age 50+ Completed 12/29/2016, 12/27/2015 Zoster (shingles) series for age 50+ Completed 05/01/2019, 01/16/2019 Hepatitis C screening for age 18-79 Completed 08/24/2022, 12/29/2016 Influenza Vaccine Completed 12/13/2023, , 12/12/2021, Additional history exists DEXA/DXA scan for age 65+ Completed 2024, 02/27/2022, 01/02/2017, Additional history exists Hepatitis B series for 19+ Aged Out N o longer eligible based on patient's age to complete this topic Procedures Procedure Name Priority Date/Time Associated Diagnosis Comments AMB EPIDURAL STEROID INJECTION Routine 08/29/2024 8:00 AM CDT Spinal stenosis, lumbar region with neurogenic claudication SCAN-BONE DENSITOMETRY DEXA 08/21/2024 12:00 AM CDT MR SPINE LUMBAR WWO Routine 08/15/2024 3 :50 PM CDT Chronic bilateral low back pain without sciatica History of lumbar fusion History of lumbar discectomy HEMOGLOBIN A1C Routine 08/07/2024 2:36 PM CDT Type 2 diabetes mellitus without complication, without long-term current use of insulin (HC) XR MAMMO ROZINA BILAT SCREEN Routine 02/15/2024 10:13 AM TROUBLE OPERATOR Known health problems: none LIPID PANEL W REFLEX MEASURED LDL Routine 02/15/2024 8:26 AM TROUBLE OPERATOR Type 2 diabetes mellitus without complication, without long-term current use of insulin (HC) EXPOSURE (BBF) ANTI HCV STAT 08/24/2022 10:55 AM CDT COLONOSCOPY 03/16/2020 9:28 AM TROUBLE OPERATOR from Last 3 Months or Most Recently Relevant to Health Maintenance Results * SCAN-BONE DENSITOMETRY DEXA (08/21/2024 12:00 AM CDT) Anatomical Region Laterality Modality Other us Scanner OTHER Final Result * MR SPINE LUMBAR WWO (08/15/2024 3:50 PM CDT) Anatomical Region Laterality Modality Spine, LUMBAR SPINE Magnetic Res onance 08/15/2024 4:45 PM CDT Narrative 08/15/2024 4:45 PM CDT For Patients: As a result of the Cures Act, medical imaging exams and procedure reports are released immediately into your electronic medical record. You may view this report before your referring provider. If you have questions, please contact your health care provider. Indication: Chronic bilateral low back pain without sciatica. History of lumbar discectomy and fusion. Technique: Multiplanar, multisequence, MRI of the lumbar spine, obtained without and with contrast. A total of 20 mL of Dotarem IV contrast was administered. Comparison: MRI lumbar spine 04/07/2019 Findings: Levoconvex curvature, apex at L3, with right lateral listhesis at L1-2, left lateral listhesis at L4-5. Preserved lumbar lordosis, with grade 1 retrolisthesis at L1- 2, anterolisthesis at L3-4. Posterior transpedicular screw and evaristo fusion changes at L2-L4, with laminectomy decompression at L2-3, L3-4 and L4-5. Interval removal of prior L4-5 posterior spinal fusion hardware. No acute osseous abnormality. Modic type 1 opposing endplate changes at L1-2. Partial bony ankylosis across the L4-5 disc space. Conus medullaris terminates at L1. No pathologic postcontrast enhancement is seen. Included SI joints are unremarkable. T12-L1: Facet arthropathy. No neural foraminal or spinal canal stenosis. L1-L2: Diffuse left eccentric disc-osteophyte complex, facet arthropathy. Mild bilateral neural foraminal narrowing. No spinal canal stenosis. L2-L3: Postop changes, right eccentric disc-osteophyte complex, facet arthropathy. No neural foraminal stenosis. Laminectomy decompression of the spinal canal. L3-L4: Postop changes, right eccentric disc-osteophyte complex, facet arthropathy. Mild bilateral neural foraminal narrowing. Laminectomy decompression of the spinal canal. L4-L5: Postop changes, right eccentric disc-osteophyte complex, facet arthropathy. Mild bilateral neural foraminal narrowing. Laminectomy decompression of the spinal canal. L5-S1: Left eccentric disc-osteophyte complex, left asymmetric facet arthropathy. No right, moderately severe left neural foraminal stenosis with potential left L5 nerve root impingement. No spinal canal stenosis. Impression: 1. Since the 04/07/2019 comparison, posterior transpedicular screw and evaristo fusion changes from L2-L4 with laminectomy decompression, along with interval explantation of the previous L4-L5 spinal fusion hardware. 2. Lumbar levoconvex curvature, with low-grade spondylolisthesis and multilevel spondylosis as detailed. 3. At L1-L2, mild bilateral neural foraminal narrowing, progressed relative to 04/07/2019. 4. At L2-L3, resolution of previous mild spinal canal and mild right neural foraminal narrowing. 5. At L3-L4, mild bilateral neural foraminal narrowing, with improved patency of the right neural foramen and spinal canal. 6. At L4-L5, similar mild bilateral neural foraminal narrowing. 7. At L5-S1, similar moderately severe left neural foraminal stenosis with potential left L5 nerve root impingement. Dictated by Sherine Maria MD @ 08/15/2024 4:45:52 PM (Electronically Signed) Procedure Note Sherine Maria, DO - 08/15/2024 For Patients: As a result of the Cures Act, medical imagingexams and procedure reports are released immediately into your electronicmedical record. You may view this report before your referring provider.If you have questions, please contact your health care provider. Indication: Chronic bilateral low back pain without sciatica. History of lumbardiscectomy and fusion. Technique: Multiplanar, multisequence, MRI of the lumbar spine, obtained without andwith contrast. A total of 20 mL of Dotarem IV contrast was administered. Comparison: MRI lumbar spine 04/07/2019 Findings: Levoconvex curvature, apex at L3, with right lateral listhesis at L1-2,left lateral listhesis at L4-5. Preserved lumbar lordosis, with grade 1retrolisthesis at L1- 2, anterolisthesis at L3-4. Posterior transpedicularscrew and evaristo fusion changes at L2-L4, with laminectomy decompression atL2-3, L3-4 and L4-5. Interval removal of prior L4-5 posterior spinalfusion hardware. No acute osseous abnormality. Modic type 1 opposingendplate changes at L1-2. Partial bony ankylosis across the L4-5 discspace. Conus medullaris terminates at L1. No pathologic postcontrastenhancement is seen. Included SI joints are unremarkable. T12-L1: Facet arthropathy. No neural foraminal or spinal canal stenosis. L1-L2: Diffuse left eccentric disc-osteophyte complex, facet arthropathy.Mild bilateral neural foraminal narrowing. No spinal canal stenosis. L2-L3: Postop changes, right eccentric disc-osteophyte complex, facetarthropathy. No neural foraminal stenosis. Laminectomy decompression ofthe spinal canal. L3-L4: Postop changes, right eccentric disc-osteophyte complex, facetarthropathy. Mild bilateral neural foraminal narrowing. Laminectomydecompression of the spinal canal. L4-L5: Postop changes, right eccentric disc-osteophyte complex, facetarthropathy. Mild bilateral neural foraminal narrowing. Laminectomydecompression of the spinal canal. L5-S1: Left eccentric disc-osteophyte complex, left asymmetric facetarthropathy. No right, moderately severe left neural foraminal stenosiswith potential left L5 nerve root impingement. No spinal canal stenosis. Impression: 1. Since the 04/07/2019 comparison, posterior transpedicular screw and rodfusion changes from L2-L4 with laminectomy decompression, along withinterval explantation of the previous L4-L5 spinal fusion hardware. 2. Lumbar levoconvex curvature, with low-grade spondylolisthesis andmultilevel spondylosis as detailed. 3. At L1-L2, mild bilateral neural foraminal narrowing, progressedrelative to 04/07/2019. 4. At L2-L3, resolution of previous mild spinal canal and mild rightneural foraminal narrowing. 5. At L3-L4, mild bilateral neural foraminal narrowing, with improvedpatency of the right neural foramen and spinal canal. 6. At L4-L5, similar mild bilateral neural foraminal narrowing. 7. At L5-S1, similar moderately severe left neural foraminal stenosis withpotential left L5 nerve root impingement. Dictated by Sherine Maria MD @ 08/15/2024 4:45:52 PM (Electronically Signed) Nacho Lozoya MD MR Final Result * (ABNORMAL) HEMOGLOBIN A1C (08/07/2024 2:36 PM CDT) HEMOGLOBIN A1C 6.5(H) <5.7 % [facility] Comment: For someone without known diabetes, a hemoglobin A1c value of 6.5% or greater indicates that they may have diabetes and this should be confirmed with a follow-up test. For someone with known diabetes, a value <7% indicates that their diabetes is well controlled and a value greater than or equal to 7% indicates suboptimal control. A1c targets should be individualized based on duration of diabetes, age, comorbid conditions, and other considerations. Currently, no consensus exists regarding use of hemoglobin A1c for diagnosis of diabetes for children. Blood BLOOD SPECIMEN / Unknown 08/07/2024 2:36 PM CDT 08/07/2024 2:36 PM CDT Narrative [facility] - 08/08/2024 4:28 AM CDT FASTING:NO FASTING: NO Nacho Lozoya MD CHEMISTRY Final Result [facility] [address] [place] [address], [facility] [address] [place] [address] * XR MAMMO ROZINA BILAT SCREEN (02/15/2024 10:13 AM TROUBLE OPERATOR) Anatomical Region Laterality Modality BREASTS, Breast Left, Breast Right Bilateral Mammography Impressions 02/17/2024 8:38 AM TROUBLE OPERATOR There is no radiographic evidence for malignancy. Recommend annual mammograms. MAMMOGRAM ASSESSMENT: ACR 1 Negative PATIENTS: You will also receive a letter with your examination results in an easy to read format. If you have questions about your results, please contact your referring provider. Narrative 02/17/2024 8:38 AM TROUBLE OPERATOR For Patients: As a result of the 21st Century Cures Act, medical imaging exams and procedure reports are released immediately into your electronic medical record. You may view this report before your referring provider. If you have questions, please contact your health care provider. XR MAMMO ROZINA BILAT SCREEN [[id number]] CLINICAL HISTORY: This is an asymptomatic 73 y.o. patient. INDICATION FOR EXAM: Mammogram Screening. TECHNIQUE: CC & MLO views were obtained. This study was evaluated with the assistance of Computer-Aided Detection. Breast Tomosynthesis was used in interpretation. COMPARISON FILM: Yes 02/21/23 [facility] 02/20/22 [facility] FINDINGS: There are scattered areas of fibroglandular density. There are no dominant masses, suspicious micro calcifications or areas of architectural distortion. Asya Acosta MD MAMMO Final R esult * LIPID PANEL W REFLEX MEASURED LDL (02/15/2024 8:26 AM TROUBLE OPERATOR) CHOLESTEROL, TOTAL 139 <200 mg/dL [facility] HDL CHOLESTEROL 65 > OR = 50 mg/dL [facility] TRIGLYCERIDES 59 <150 mg/dL [facility] LDL-CHOLESTEROL 60 mg/dL (calc) [facility] Comment: Reference range: <100 Desirable range <100 mg/dL for primary prevention; <70 mg/dL for patients with CHD or diabetic patients with > or = 2 CHD risk factors. LDL-C is now calculated using the Arnold-Devon calculation, which is a validated novel method providing better accuracy than the Friedewald equation in the estimation of LDL-C. Arnold SS et al. COMFORT. 2013;310(19): 9847-1404 (http://education.[employer]/faq/AAN951) CHOL/HDLC RATIO 2.1 <5.0 (calc) [facility] NON HDL CHOLESTEROL 74 <130 mg/dL (calc) [facility] Comment: For patients with diabetes plus 1 major ASCVD risk factor, treating to a non-HDL-C goal of <100 mg/dL (LDL-C of <70 mg/dL) is considered a therapeutic option. Blood BLOOD SPECIMEN / Unknown 02/15/2024 8:26 AM TROUBLE OPERATOR 02/15/2024 8:27 AM TROUBLE OPERATOR Asya Acosta MD CHEMISTRY Final R esult [employer] [facility] [address] [place] [address], [facility] [address] [place] [address] * Patient Source ANTI HCV (08/24/2022 10:55 AM CDT) HEPATITIS C ANTIBODY Non-React sissy Non-React sissy 08/25/2022 10:04 AM CDT [facility] Comment: Please note, per www.CDC.gov: If a patient is known to be at high risk of HCV infection, or is symptomatic, and the physician's suspicion of HCV infection is high, HCV RNA testing is often employed and is of diagnostic value, even after an initial negative anti-HCV test result. Biotin supplements may cause clinically significant interference for this test assay. If interference is suspected, it is strongly recommended that biotin is discontinued for at least one week prior to retesting. Blood BLOOD SPECIMEN / Unknown Butterfly / Unknown 08/24/2022 10:55 AM CDT 08/24/2022 11:00 AM CDT us Nurai Pizano RN SEND OUTS Final Resul t [facility] SENDOUT INTERNAL ZIP [id number] [address] [place] [address] * COLONOSCOPY (03/16/2020 9:28 AM TROUBLE OPERATOR) 03/16/2020 9:28 AM TROUBLE OPERATOR Narrative Transcriptions Arnold Beatty MD - 03/16/2020 10:05 AM CST Patient Name: Samia Cruz Procedure Date: 03/16/2020 Gender: Female Date of : 1950 Admit Type: Outpatient Procedure: Colonoscopy Proceduralist: Arnold Beatty MD , Renay Mccall RN(Nurse) Indications/Pre-Op Diagnosis: Surveillance: Personal history ofadenomatous polyps on last colonoscopy > 3 years ago,Last colonoscopy: January 2017 Medications: Fentanyl 100 micrograms IV, Midazolam 2 mgIV, The level of sedation administered wasmoderate Procedure Description: The patient had risks, benefits and alternatives explained to andgave informed consent. The patient had a stable cardiopulmonary status and judged an adequate candidate for conscious sedation. The PCF-Q290AL [id number] was passed through the anus and advanced tothe cecum, identified by appendiceal orifice and ileocecal valve. The colonoscopy was performed without difficulty. The patient toleratedthe procedure well. The quality of the bowel preparation was good. The ileocecal valve, appendiceal orifice, and rectum were photographed. Complications: No immediate complications. Estimated Blood Loss & Specimen: Estimated blood loss: none. Findings: The perianal and digital rectal examinations were normal. Multiple small-mouthed diverticula were found in the sigmoid colon. A 2 mm polyp was found in the cecum. The polyp was sessile. The polyp was removed with a cold biopsy forceps. Resection and retrieval were complete. A 3 mm polyp was found in the transverse colon. The polyp wassessile. The polyp was removed with a cold snare. Resection and retrieval were complete. A diffuse area of mild melanosis was found in the entire colon. The exam was otherwise without abnormality on direct and retroflexion views. Impressions/Post-Op Diagnosis: - Diverticulosis in the sigmoid colon. - One 2 mm polyp in the cecum, removed with a cold biopsy forceps. Resected and retrieved. - One 3 mm polyp in the transverse colon, removed with a cold snare. Resected and retrieved. - Melanosis in the colon. - The examination was otherwise normal on direct and retroflexionviews. Recommendation: - Patient has a contact number available for emergencies. The signsand symptoms of potential delayed complications were discussed with the patient. Return to normal activities tomorrow. Written discharge instructions were provided to the patient. - Resume previous diet. - Continue present medications. - Await pathology results. - Repeat colonoscopy in 5 years for surveillance. Moderate Sedation: Moderate (conscious) sedation was administered by the endoscopy nurse and supervised by the endoscopist. The following parameters were monitored: oxygen saturation, heart rate, respiratory rate, blood pressure, adequacy of pulmonary ventilation and reponse to care. Please refer to the patient's medical record flowsheets and nursing notes for moderate sedation details. Total physician intraservice time was 23 minutes. Arnold Beatty MD 03/16/2020 10:05:23 AM This report has been signed electronically. Note Initiated On: 03/16/2020 9:28 AM Procedure Code(s): --- Professional --- 15496, Colonoscopy, flexible; with removalof tumor(s), polyp(s), or other lesion(s) bysnare technique 53703, 59, Colonoscopy, flexible; withbiopsy, single or multiple Diagnosis Code(s): --- Professional --- Z86.010, Personal history of colonicpolyps K63.5, Polyp of colon K63.89, Other specified diseases ofintestine K57.30, Diverticulosis of large intestine without perforation or abscess withoutbleeding CPT copyright 2019 [employer]. All rights reserved. The codes documented in this report are preliminary and upon windows vmware engineer reviewmay be revised to meet current compliance requirements. Scope In: 9:39:22 AM Scope Withdrawal Time 0 hours 9 minutes 38 seconds Scope Out: 10:00:56 AM us Arnold Beatty MD PROCEDURE ORD Final Res ult from Last 3 Months or Most Recently Relevant to Health Maintenance Insurance [place]UE [place] BLUE MR PB ONLY [place] BLUE HB ONLY MEDICARE PART B HB ONLY MEDICARE PART A HB ONLY Advance Directives Documents on File Type Date Recorded Patient Pharmacy Data Analyst Expl anation Healthcare Directive 01/13/2021 11:44 AM M N HEALTH CARE DIRECTIVE, 10/15/2020 * Full Code (Latest Code Status on File) Date Activated Date Inactivated Comments 08/24/2022 7:05 AM 08/24/2022 2:05 PM Question Answer Comments Code Status Discussion: Reviewed Preferences * Full Code Date Activated Date Inactivated Comments 01/29/2018 11:02 AM 01/29/2018 6:27 PM * Full Code Date Activated Date Inactivated Comments 07/24/2017 11:33 AM 07/24/2017 4:26 PM * Full Code Date Activated Date Inactivated Comments 07/24/2017 11:33 AM 07/24/2017 11:33 AM Care Teams Services Clerk Relationship Specialty Start Date End Date Nacho Lozoya MD [address] [place] [address] PCP - General Family Practice 05/21/24
--- OUTSIDE RECORDS SUMMARY | 2024-08-30 00:23 | XMS_ITS | Clinical Summary ---
Author Organization [facility] Address [address] [place] [address] Care Team Providers Care Land Surveyor Name Role Phone Nacho Lozoya MD Primary [...] appt, you will need to have a tractor trailer driver 1 Tablet 5 Active metFORMIN 500 mg Extended-Release tabletIndication s:Type 2 diabetes mellitus without complication, without long-term current use of insulin (HC) Take 1 Tablet (500 mg) by mouth once daily. 90 Tablet 1 5 Active Active Problems Problem Noted Date Diagnosed Date History of back surgery 08/07/2024 Overview (08/07/2024): Past back surgeries by Edgard Cole MD at [facility] in [place] 2007 :L4-5 decompressive laminectomy and fusion using [...] escitalopram Recent encounter dx: 06/22/23: Appointment - [facility] 04/07/22: Appointment - [facility] 07/08/21: Appointment - [facility] 01/03/16: Appointment - [facility] 12/27/15: Appointment - [facility] Recent notes: 05/21/24: Progress Notes - [...] mg/dL Recent encounter dx: 05/05/24: Appointment - [facility] 04/07/24: Appointment - [facility] 02/15/24: Appointment - [facility] 12/13/23: Appointment - [facility] 07/20/23: Appointment - [facility] Recent notes: 05/05/24: Progress Notes - [...] Encounters Date Type Department Care Team Description 08/29/2024 3:00 PM CDT Office Visit [facility] [address] [facility] [place] [address] Kevin Smith MD Procedure (Left L5-S1 TFESI) 08/27/2024 Telephone [facility] [address] [place] [address] Nacho Lozoya MD Results 08/21/2024 Orders Only [facility] Scanner 1 scan: (1-Ord) [facility], XR DEXA AXIAL SKELETON, 08/21/2024 08/19/2024 Transcribe Orders [facility] [address] [place] [address] Kevin Smith MD 08/18/2024 Telephone [facility] [address] [place] [address] Nacho Lozoya MD Questions (Referral ) 08/15/2024 2:54 PM CDT - 08/15/2024 11:59 PM CDT Hospital Encounter [facility] [address] [place] [address] Nacho Lozoya MD Chronic bilateral low back pain without sciatica; History of lumbar fusion; History of lumbar discectomy 08/15/2024 Travel 08/11/2024 Telephone [facility] [address] [place] [address] Nacho Lozoya MD Medication Management (Metformin) 08/08/2024 Telephone [facility] [address] [place] [address] Nacho Lozoya MD Results 08/07/2024 1:00 PM CDT Office Visit [facility] [address] [place] [address] Nacho Lozoya MD Follow Up (Back pain) 08/07/2024 Telephone [facility] [address] [place] [address] Nacho Lozoya MD med for MRI 08/07/2024 Telephone [facility] [address] [place] [address] Nacho Lozoya MD Screening 08/07/2024 Travel 08/05/2024 Telephone [facility] [address] [address] Lizzeth Domingo, PhD, LP Appointment Reminder 07/24/2024 10:31 AM CDT - 07/24/2024 11:59 PM CDT Hospital Encounter [address] [address] Nacho Lozoya MD Rein, Erik, PT 07/24/2024 Travel 07/17/2024 10:41 AM CDT - 07/17/2024 11:59 PM CDT Hospital Encounter [address] [address] Nacho Lozoya MD Vinar, Kaylin J, NEREIDA 07/17/2024 Travel 07/03/2024 10:52 AM CDT - 07/03/2024 11:59 PM CDT Hospital Encounter [address] [place] [address] Nacho Lozoya MD Vinar, Kaylin J, HORSERADISH MAKER 07/03/2024 Travel 06/26/2024 1:11 PM CDT - 06/26/2024 11:59 PM CDT Hospital Encounter [address] [place] [address] Nacho Lozoya MD Rein, Erik, PT 06/26/2024 Travel 06/19/2024 10:54 AM CDT - 06/19/2024 11:59 PM CDT Hospital Encounter [address] [place] [address] Nacho Lozoya MD Rein, Erik, PT 06/19/2024 Travel 06/12/2024 2:54 PM CDT - 06/12/2024 11:59 PM CDT Hospital Encounter [address] [place] [address] Nacho Lozoya MD Rein, Erik, PT 06/12/2024 Travel 06/08/[address] [place] [address] Nacho Lozoya MD Refill Request (Rosuvastatin) from Last 3 Months Immunizations Immunization Administration Dates Next Due COVID-19 VACCINE SPIKEVAX (M ODERNA 50MCG/0.5ML) 12YO+ PFS 12/13/2023 COVID-19 vaccine (Moderna 100mcg/0.5mL) PF, MDV 06/16/2020,05/19/2020 COVID-19 vaccine (Pfizer-Bio NTech 30mcg/0.3mL) PF, MDV 01/13/2021 Influenza, High-dose Inactivated 12/27/2015 Influenza, IIV3 [...] disease Sister 1 Heart Disease Sister 1 [place] Pulmonary embolism Sister 2 Heart Disease Sister [...] on file Legal Sex Female 7:00 AM [employer]T [employer] Gender Identity Not on file Sexual Orientation [...] 37.4 C (99.3 F) 04/25/2024 7:12 PM [employer]TER [employer] Respiratory Rate 20 04/25/2024 7:12 PM W[employer]T [employer]TER HAND Oxygen Saturation 96% 08/07/2024 12:59 PM CDT Inhaled Oxygen Concentration - - Weight 89.4 kg (197 lb 3.2 oz) 08/07/2024 12:59 PM CDT Height 165.1 cm (5' 5) 05/05/2024 1:32 PM WELT BUTTER [employer] Body Mass Index 32.82 05/05/2024 1:32 PM WELT BUTTER HAND Plan of Treatment Upcoming Encounters Date Type Department Care Team (Late st Contact Info) Description 09/25/2024 9:05 AM CDT Office Visit [facility] [address] [place] [address] [place] [phone] Ruben Morales MD [address] [place] [address] Health Maintenance Due Date Last Done Comments [...] ROZINA BILAT SCREEN Routine 02/15/2024 10:13 AM WELT BUTTER HAND Known health problems: none LIPID PANEL W REFLEX MEASURED LDL Routine 02/15/2024 8:26 AM WELT BUTTER HAND Type 2 diabetes mellitus without complication, without long-term current use of insulin (HC) EXPOSURE (BBF) ANTI HCV STAT 08/24/2022 10:55 AM CDT COLONOSCOPY 03/16/2020 9:28 AM WELT BUTTER HAND from Last 3 Months or Most Recently [...] PM (Electronically Signed) Procedure Note Sherine Maria, - 08/15/2024 For Patients: As a result of the Century Cures Act, medical imagingexams and procedure reports [...] @ 08/15/2024 4:45:52 PM (Electronically Signed) Nacho Swanson-Misael Lozoya MD MR Final Result * (ABNORMAL) HEMOGLOBIN A1C (08/07/2024 2:36 PM CDT) HEMOGLOBIN A1C 6.5(H) <5.7 % [facility] Comment: For someone without known diabetes, [...] NO Nacho Lozoya MD CHEMISTRY Final Result [facility] [address] [place] [address], [facility] [address] [place] [address] * XR MAMMO ROZINA BILAT SCREEN (02/15/2024 10:13 AM WELT BUTTER HAND) Anatomical Region Laterality Modality BREASTS, Breast Left, Breast Right Bilateral Mammography Impressions 02/17/2024 8:38 AM WELT BUTTER HAND There is no radiographic evidence for malignancy. Recommend annual mammograms. MAMMOGRAM ASSESSMENT: ACR 1 Negative PATIENTS: You will also receive a letter with your examination results in an easy to read format. If you have questions about your results, please contact your referring provider. Narrative 02/17/2024 8:38 AM WELT BUTTER HAND For Patients: As a result of the Cures Act, medical imaging exams and procedure reports are released immediately into your electronic medical record. You may view this report before your referring provider. If you have questions, please contact your health care provider. XR MAMMO ROZINA BILAT SCREEN [[id number]] CLINICAL HISTORY: This is an asymptomatic 73 y.o. patient. INDICATION FOR EXAM: Mammogram Screening. TECHNIQUE: CC & MLO views were obtained. This study was evaluated with the assistance of Computer-Aided Detection. Breast Tomosynthesis was used in interpretation. COMPARISON FILM: Yes 02/21/23 [facility] 02/20/22 [employer] FINDINGS: There are scattered areas of fibroglandular density. There are no dominant masses, suspicious micro calcifications or areas of architectural distortion. Asya Acosta MD MAMMO Final R esult * LIPID PANEL W REFLEX MEASURED LDL (02/15/2024 8:26 AM WELT BUTTER HAND) CHOLESTEROL, TOTAL 139 <200 mg/dL [facility] HDL CHOLESTEROL 65 > OR = 50 mg/dL [facility] TRIGLYCERIDES 59 <150 mg/dL [facility] LDL-CHOLESTEROL 60 mg/dL (calc) [facility] Comment: Reference range: <100 Desirable range <100 mg/dL for primary prevention; <70 mg/dL for patients with CHD or diabetic patients with > or = 2 CHD risk factors. LDL-C is now calculated using the Adrian calculation, which is a validated novel method providing better accuracy than the Friedewald equation in the estimation of LDL-C. Arnold SS et al. COMFORT. 2013;310(19): 0025-0566 (http://education.[employer]/faq/ANL849) CHOL/HDLC RATIO 2.1 <5.0 (calc) [facility] NON HDL CHOLESTEROL 74 <130 mg/dL (calc) [facility] Comment: For patients with diabetes plus 1 major ASCVD risk factor, treating to a non-HDL-C goal of <100 mg/dL (LDL-C of <70 mg/dL) is considered a therapeutic option. Blood BLOOD SPECIMEN / Unknown 02/15/2024 8:26 AM WELT BUTTER HAND 02/15/2024 8:27 AM WELT BUTTER HAND Asya Acosta MD CHEMISTRY Final R esult [employer] [facility] [address] [place] [address], [facility] [address] [place] [phone] * Patient Source ANTI HCV (08/24/2022 10:55 AM CDT) Pathologist [facility] HEPATITIS C ANTIBODY Non-React sissy Non-React sissy 08/25/2022 10:04 AM CDT [facility] Comment: Please note, per www.CDC.gov: If [...] AM CDT 08/24/2022 11:00 AM CDT us Nuria Pizano RN SEND OUTS Final Resul t [facility] SENDOUT INTERNAL ZIP [id number] [address] [place] [address] * COLONOSCOPY (03/16/2020 9:28 AM WELT BUTTER HAND) 03/16/2020 9:28 AM WELT BUTTER HAND Narrative Transcriptions Arnold Beatty MD - 03/16/2020 [...] adequate candidate for conscious sedation. The PCF-Q290AL [id number] was passed through the anus and advanced [...] 9:28 AM Procedure Code(s): --- Professional --- 85821, Colonoscopy, flexible; with removalof tumor(s), polyp(s), or other lesion(s) byraegan technique 47550, 59, Colonoscopy, flexible; withbiopsy, single or multiple Diagnosis Code(s): --- Professional --- Z86.010, Personal history of colonicpolyps K63.5, Polyp of colon K63.89, Other specified diseases ofintestine K57.30, Diverticulosis of large intestine without perforation or abscess withoutbleeding CPT copyright 2019 [employer]. All rights reserved. The codes documented in this report are preliminary and upon medical billing coder reviewmay be revised to meet current compliance requirements. Scope In: 9:39:22 AM Scope Withdrawal Time 0 hours 9 minutes 38 seconds Scope Out: 10:00:56 AM Arnold Beatty MD PROCEDURE ORD Final Res ult from Last 3 Months or Most Recently Relevant to Health Maintenance Insurance [place] BLUE MR PB ONLY [place] HB ONLY MEDICARE PART B HB ONLY MEDICARE PART A HB ONLY Advance Directives Documents on File Type Date Recorded Patient Senior Product Manager Expl anation Healthcare Directive 01/13/2021 11:44 AM [...] 11:33 AM 07/24/2017 11:33 AM Care Teams Land Surveyor Relationship Specialty Start Date End Date Nacho Lozoya MD [address] [place] [address] PCP - General Family Practice 05/21/24
== END 2024-08-29 13:36 | disposition home or self-care (01) ==
LOC: INJ CL 13:36
PROVIDERS: PCP Student in an Organized Health Care Education/Training Program; Visit Provider Family Medicine
DX: M54.16 Radiculopathy, lumbar region (principal); M51.369 Other intervertebral disc degeneration, lumbar region without mention of lumbar back pain or lower extremity pain; M48.062 Spinal stenosis, lumbar region with neurogenic claudication
CPT/HCPCS: 64483; J1100; Q9966